=== PATIENT | female | born 1960 ===

== ENCOUNTER 2024-06-29 13:14 | Outpatient (AMB) | payer MEDICARE, OTHER, MEDICAID, SELFPAY ==
--- NOTE | 2024-06-29 13:16 | A.OFFVIS_ITS ---
Vital Signs 06/29/24 13:18 Height 5 ft Weight 155 lb 3.287 oz BMI 30.3 BP 118/74 Blood Pressure Location Lt brachial Position Sitting Pulse 86 Pulse Source Pulse Oximeter Pulse Oximetry (%) 98 Oxygen Delivery Method Room Air Intake Visit Reasons: T2DM Intake Note: NEW Patient presents today to establish treatment for Type 2 Diabetes Mellitus: Last Diabetic eye exam was on: About 2 years ago Last Podiatry exam was on: Patient does not see a Offset Label Rewinder Most recent HbA1c: 9.0%, 05/10/2024 Random Glucose- 194 mg/dL Workforce Management Consultant Required: Yes Workforce Management Consultant Language: Singaporean Workforce Management Consultant Services: Workforce Management Consultant Offered & Declined Accompanied by: Son Allergies No Known Allergies Allergy (Verified 06/29/24 13:21) HPI Comments Details: The patient is presenting for diabetes consultation Medical history: hypertension, migraines Current medications: Ozempic 2mg weekly (increased from 1mg weekly 1 month ago) Glipizide 10 ER Janumet 50-100mg daily once daily (decreased from BID due to dyspepsia) Farxiga 10mg daily Last A1c 04/2024 9.0% Complications-overdue eye exam. Last seen by Dr Venancio RAMOS CONSTITUTIONAL: Denies weight loss, fever and chills. HEENT: Denies changes in vision and hearing. RESPIRATORY: Denies SOB and cough. CV: Denies palpitations and CP GI: Denies abdominal pain, nausea, vomiting and diarrhea. : Denies dysuria and urinary frequency. MSK: Denies new myalgia and joint pain. SKIN: Denies rash and pruritus. NEUROLOGICAL: Denies headache PSYCHIATRIC: Denies recent changes in mood. PHYSICAL EXAM: GENERAL: Alert and oriented x 3. NAD EYES: EOMI. Anicteric. HENT: Moist mucous membranes. No scleral icterus. No cervical lymphadenopathy. LUNGS: Clear to auscultation bilaterally. CARDIOVASCULAR: Regular rate and rhythm. No murmur. No JVD. ABDOMEN: Soft, non-tender +bs EXTREMITIES: No edema. Non-tender. SKIN: No rashes or lesions. Warm. NEUROLOGIC: No focal neurological deficits. CN II-XII grossly intact PSYCHIATRIC: Cooperative. Appropriate mood and affect [facility] Medical History (Updated 06/29/24 @ 14:05 by Ofelia Guerra MD) Nonalcoholic steatohepatitis (CORTES) Hyperlipidemia, unspecified Zoster without complications Acute thyrotoxicosis Essential (primary) hypertension Type 2 diabetes mellitus with hyperglycemia Surgical History (Updated 06/29/24 @ 13:26 by GRISELDA Gregory) History of hemorrhoidectomy Family History (Updated 06/27/24 @ 10:07 by GRISELDA Mendez) Father No problems noted. Mother No problems noted. Physical Exam Vital Signs: Last Vital Signs Pulse 86 06/29/24 13:18 BP 118/74 06/29/24 13:18 Pulse Ox 98 06/29/24 13:18 Oxygen Delivery Method Room Air 06/29/24 13:18 BMI result Body Mass Index 30.3 Assessment & Plan Assessment & Plan (1) Type 2 diabetes mellitus with hyperglycemia: Code(s): E11.65 - Type 2 diabetes mellitus with hyperglycemia Category: Medical Qualifiers: Diabetes mellitus termite treater helper insulin use: without prison use Qualified Code(s): E11.65 - Type 2 diabetes mellitus with hyperglycemia Plan Uncontrolled GI side effects-unclear cause Stop janumet. Start metformin 1000 ER once daily Increase glipizide to 10mg twice daily Continue farxiga Return in 4-6 weeks Medications: New glipizide ER 10 mg PO BID 180 tabs 1RF metformin ER 1,000 mg PO DAILY 90 tabs 3RF ondansetron HCl 4 mg PO Q8H PRN 30 tabs 1RF nausea and vomiting FreeStyle Giovanni 2 [place] (flash glucose scanning reader) As directed 1 ea 0RF NS E11.65 - Type 2 diabetes mellitus with hyperglycemia Coding Level of Care Code New Pt Level 4 (60843) Diagnoses Type 2 diabetes mellitus with hyperglycemia, without long-term current use of insulin E11.65 Diabetes mellitus prison insulin use: without termite treater helper use
[2024-06-29 13:18] VITALS: BP 118/74; PULSE 86; O2SAT 98; BMI 30.3
[2024-06-29 13:31] LABS: Glucose, Whole Blood 194 mg/dL (60-115)
== END 2024-06-29 13:58 | disposition home or self-care (01) ==
PROVIDERS: PCP Physician Assistant Medical; Visit Provider Internal Medicine
DX: E11.65 Type 2 diabetes mellitus with hyperglycemia (principal)

== ENCOUNTER → 2024-06-29 13:14 | Outpatient (BNVA) | payer OTHER, MEDICAID, SELFPAY | PROVIDERS: PCP Physician Assistant Medical; Visit Provider Internal Medicine | DX: E11.65 Type 2 diabetes mellitus with hyperglycemia (principal); Z79.84 Long term (current) use of oral hypoglycemic drugs | CPT/HCPCS: 82947; 99202 ==

== ENCOUNTER 2024-08-03 13:12 | Outpatient (AMB) | payer MEDICARE, OTHER, MEDICAID, SELFPAY ==
--- NOTE | 2024-08-03 13:17 | A.OFFVIS_ITS ---
Vital Signs 08/03/24 13:19 Height 5 ft Weight 154 lb 5.177 oz BMI 30.1 BP 122/68 Blood Pressure Location Rt brachial Position Sitting Pulse 94 Pulse Source Pulse Oximeter Pulse Oximetry (%) 97 Oxygen Delivery Method Room Air Intake Visit Reasons: T2DM Intake Note: Patient presents today for a follow-up on Type 2 Diabetes Mellitus: Last Diabetic eye exam was on: DUE, as a coming up appt in November Last Podiatry exam was on: Patient does not see a Tobacco Checkout Clerk Most recent HbA1c: 8.5%, 08/03/2024 Random Glucose: 203 mg/dL Centrex Radio Operator Required: Yes Centrex Radio Operator Language: Citizen Of [place] Centrex Radio Operator Services: Centrex Radio Operator Offered & Declined Accompanied by: Son Allergies No Known Allergies Allergy (Verified 08/03/24 13:27) HPI Comments Details: The patient is presenting for diabetes consultation Medical history: hypertension, migraines Current medications: Ozempic 2mg weekly (increased from 1mg weekly 1 month ago) Glipizide 20 (increased from 10) ER Janumet 50-1000mg daily once daily (decreased from BID due to dyspepsia)-stopped Metformin 500mg bid Farxiga 10mg daily Last A1c 04/2024 9.0% A1C today 8.5% (med changes one month ago). Average over last 7 days 170. Lowest 66-fasting Complications-overdue eye exam. Last seen by Dr Venancio RAMOS CONSTITUTIONAL: Denies weight loss, fever and chills. HEENT: Denies changes in vision and hearing. RESPIRATORY: Denies SOB and cough. CV: Denies palpitations and CP GI: Denies abdominal pain, nausea, vomiting and diarrhea. : Denies dysuria and urinary frequency. MSK: Denies new myalgia and joint pain. SKIN: Denies rash and pruritus. NEUROLOGICAL: Denies headache PSYCHIATRIC: Denies recent changes in mood. PHYSICAL EXAM: GENERAL: Alert and oriented x 3. NAD EYES: EOMI. Anicteric. HENT: Moist mucous membranes. No scleral icterus. No cervical lymphadenopathy. LUNGS: Clear to auscultation bilaterally. CARDIOVASCULAR: Regular rate and rhythm. No murmur. No JVD. ABDOMEN: Soft, non-tender +bs EXTREMITIES: No edema. Non-tender. SKIN: No rashes or lesions. Warm. NEUROLOGIC: No focal neurological deficits. CN II-XII grossly intact PSYCHIATRIC: Cooperative. Appropriate mood and affect [facility] Medical History Nonalcoholic steatohepatitis (CORTES) Hyperlipidemia, unspecified Zoster without complications Acute thyrotoxicosis Essential (primary) hypertension Type 2 diabetes mellitus with hyperglycemia Surgical History History of hemorrhoidectomy Family History Father No problems noted. Mother No problems noted. Physical Exam Vital Signs: Last Vital Signs Pulse 94 08/03/24 13:19 BP 122/68 08/03/24 13:19 Pulse Ox 97 08/03/24 13:19 Oxygen Delivery Method Room Air 08/03/24 13:19 BMI result Body Mass Index 30.1 Results AMB Hemoglobin A1c AMB Hemoglobin A1c 8.5 % Last Edit by GRISELDA Mendez on 08/03/24 14:06 Results Reviewed Results Reviewed: Laboratory Last Values Glucose (Clinic) 203 mg/dL (60-115) H 08/03/24 13:24 Assessment & Plan Assessment & Plan (1) Type 2 diabetes mellitus with hyperglycemia: Code(s): E11.65 - Type 2 diabetes mellitus with hyperglycemia Category: Medical Qualifiers: Diabetes mellitus equipment operator intermodal yard insulin use: without snf use Qualified Code(s): E11.65 - Type 2 diabetes mellitus with hyperglycemia Plan Improved but still suboptimal glycemic control Will increase metformin to 2000mg daily If still not controlled would add actos Patient will return in 3 months or sooner as needed Orders: Orders AMB Hemoglobin A1c Today E11.65 - Type 2 diabetes mellitus with hyperglycemia Medications: New FreeStyle Giovanni 3 [place] (blood-glucose,single wire saw operator,cont) As directed 1 ea 0RF NS E11.65 - Type 2 diabetes mellitus with hyperglycemia FreeStyle Giovanni 3 Plus Sensor (blood-glucose sensor) every 15 days 6 ea 3RF NS E11.65 - Type 2 diabetes mellitus with hyperglycemia metformin ER (Glucophage XR) 2,000 mg (4 x 500 mg) PO DAILY 360 tabs 3RF Discontinued metformin ER Discontinued Reason: Doctor's Order 1,000 mg PO DAILY 90 tabs 3RF FreeStyle Giovanni 2 [place] (flash glucose scanning reader) Discontinued Reason: Doctor's Order As directed 1 ea 0RF NS E11.65 - Type 2 diabetes mellitus with hyperglycemia Coding Level of Care Code Est Pt Level 4 (93913) Diagnoses Type 2 diabetes mellitus with hyperglycemia, without long-term current use of insulin E11.65 Diabetes mellitus equipment operator intermodal yard insulin use: without equipment operator intermodal yard use
[2024-08-03 13:19] VITALS: BP 122/68; PULSE 94; O2SAT 97; BMI 30.1
[2024-08-03 13:28] LABS: Glucose, Whole Blood 203 mg/dL (60-115)
--- OUTSIDE RECORDS SUMMARY | 2024-08-03 15:05 | XMS_ITS | Clinical Summary ---
Author Organization [address] [facility] Address [address] [place] [address] Phone Care Team Providers Care Carton Forming Machine Tender Name Role Phone Linda Aguayo Primary Care Provider [phone] Social History Tobacco Use Types Packs/Day Years Used Date Smoking Tobacco: Never Assessed Comments Unknown Sex and Gender Information Value Date Recorded Sex Assigned at Not on file Legal Sex Female 1:25 PM EDT Gender Identity Not on file Sexual Orientation Not on file Plan of Treatment Upcoming Encounters Date Type Department Care Team ([facility] Contact Info) Description 09/14/2024 1:20 PM EDT Consult Gastroenterology - [place] [address] [address] Makayla Bowling PA [address] [address] Health Maintenance Due Date Last Done Comments Breast Cancer Screening 1960 DTaP,Tdap,and Td Vaccines (1 - Tdap) 1978 Cervical Cancer Screening: P ap Smear 02/18/1980 Pneumococcal Vaccine: 50+ Ye ars (1 of 1 - PCV) 2009 Zoster Vaccines (1 of 2) 2009 COVID-19 Vaccine (2023-2 5 season) 2023 Colorectal Cancer Screening: Colonoscopy 07/08/2024 Depression Screening 07/08/2024 Falls Risk Assessment 07/08/2024 Hepatitis C Screening 07/08/2024 Osteoporosis Screening (Bone Density Screening) 07/08/2024 Social Influencers of Health Screening 07/08/2024 Influenza Vaccine (Season Ended) 2024 RSV Immunization Adult Patie nts (1 - 1-dose 75+ series) 2034 HIB Vaccines Aged Out No longer eligi ble based on patient's age to complete this topic HPV Vaccines Aged Out No longer eligi ble based on patient's age to complete this topic Hepatitis A Vaccines Aged Out No long er eligible based on patient's age to complete this topic Hepatitis B Vaccines Aged Out No long er eligible based on patient's age to complete this topic IPV Vaccines Aged Out No longer eligi ble based on patient's age to complete this topic MMR Vaccines Aged Out No longer eligi ble based on patient's age to complete this topic Meningococcal ACWY Vaccine Aged Out N o longer eligible based on patient's age to complete this topic Meningococcal B Vaccine Aged Out No l onger eligible based on patient's age to complete this topic Pneumococcal Vaccine: Pediat rics (0 to 5 Years) and At-Risk Patients (6 to 64 Years) Aged Out No longer eligible b ased on patient's age to complete this topic RSV Immunization Patients Un hedy 20 months Aged Out No longer eligible b ased on patient's age to complete this topic Varicella Vaccines Aged Out No longer eligible based on patient's age to complete this topic Insurance [facility] [address] [place] [address] Care Teams Carton Forming Machine Tender Relationship Specialty Start Date End Date Linda Aguayo PA [address] [facility] 1 [place] [id number] PCP - General Physician Electronics Engineer 07/07/24
== END 2024-08-03 14:04 | disposition home or self-care (01) ==
LOC: HO.ENCR 13:13
PROVIDERS: PCP Physician Assistant Medical; Visit Provider Internal Medicine
DX: E11.65 Type 2 diabetes mellitus with hyperglycemia (principal)

== ENCOUNTER → 2024-08-03 13:12 | Outpatient (BNVA) | payer MEDICARE, OTHER, MEDICAID, SELFPAY | PROVIDERS: PCP Physician Assistant Medical; Visit Provider Internal Medicine | DX: E11.65 Type 2 diabetes mellitus with hyperglycemia (principal) | CPT/HCPCS: 82947; 83036; 99212 ==

== ENCOUNTER 2024-11-02 13:18 | Outpatient (AMB) | payer MEDICARE, OTHER, MEDICAID, SELFPAY ==
--- NOTE | 2024-11-02 13:20 | A.OFFVIS_ITS ---
Vital Signs 11/02/24 13:23 Height 5 ft Weight 154 lb 5.177 oz BMI 30.1 BP 138/88 Blood Pressure Location Rt brachial Position Sitting Pulse 76 Pulse Source Pulse Oximeter Pulse Oximetry (%) 96 Oxygen Delivery Method Room Air Intake Visit Reasons: DM Intake Note: Patient presents today for a follow-up on Type 2 Diabetes Mellitus: Last Diabetic eye exam was on: Has an appt 11/25/2024, [facility] Last Podiatry exam was on: Patient does not see a Guest Advisor Most recent HbA1c: 7.9%, 11/02/2024 Random Glucose: 123 mg/dL Tin Tie Machine Operator Automatic Required: Yes Tin Tie Machine Operator Automatic Language: Zambian Tin Tie Machine Operator Automatic Services: Tin Tie Machine Operator Automatic Offered & Declined Tin Tie Machine Operator Automatic Name: SON Accompanied by: Son Allergies No Known Allergies Allergy (Verified 08/03/24 13:27) HPI Comments Details: The patient is presenting for diabetes consultation Medical history: hypertension, migraines Current medications: Ozempic 2mg weekly Glipizide 20 Metformin 2000mg daily (increased from 1000) Farxiga 10mg daily Previously on Janumet 50-1000mg daily once daily (decreased from BID due to dyspepsia)-stopped A1C 7.9% 11/02/2024 from 8.5% from 9.0% CGM reviewed no lows GMI 7.4% Eye exam scheduled for november seeing GI-had swallow series, going for endoscopy ROS CONSTITUTIONAL: Denies weight loss, fever and chills. HEENT: Denies changes in vision and hearing. RESPIRATORY: Denies SOB and cough. CV: Denies palpitations and CP GI: Denies abdominal pain, nausea, vomiting and diarrhea. : Denies dysuria and urinary frequency. MSK: Denies new myalgia and joint pain. SKIN: Denies rash and pruritus. NEUROLOGICAL: Denies headache PSYCHIATRIC: Denies recent changes in mood. PHYSICAL EXAM: GENERAL: Alert and oriented x 3. NAD EYES: EOMI. Anicteric. HENT: Moist mucous membranes. No scleral icterus. No cervical lymphadenopathy. LUNGS: Clear to auscultation bilaterally. CARDIOVASCULAR: Regular rate and rhythm. No murmur. No JVD. ABDOMEN: Soft, non-tender +bs EXTREMITIES: No edema. Non-tender. SKIN: No rashes or lesions. Warm. NEUROLOGIC: No focal neurological deficits. CN II-XII grossly intact PSYCHIATRIC: Cooperative. Appropriate mood and affect [facility] Medical History Nonalcoholic steatohepatitis (CORTES) Hyperlipidemia, unspecified Zoster without complications Acute thyrotoxicosis Essential (primary) hypertension Type 2 diabetes mellitus with hyperglycemia Surgical History History of hemorrhoidectomy Family History Father No problems noted. Mother No problems noted. Physical Exam Vital Signs: Last Vital Signs Pulse 76 11/02/24 13:23 Pulse Ox 96 11/02/24 13:23 Oxygen Delivery Method Room Air 11/02/24 13:23 BMI result Body Mass Index 30.1 Results AMB Hemoglobin A1c AMB Hemoglobin A1c 7.9 % Last Edit by GRISELDA Mendez on 11/02/24 13:40 Assessment & Plan Assessment & Plan (1) Type 2 diabetes mellitus with hyperglycemia: Code(s): E11.65 - Type 2 diabetes mellitus with hyperglycemia Category: Medical Qualifiers: Diabetes mellitus intermediate insulin use: without dedicated intermodal truck driver use Qualified Code(s): E11.65 - Type 2 diabetes mellitus with hyperglycemia Plan type 2 diabetes-improving control, still suboptimal. add actos 30mg daily Continue other meds as presribed-refilled per patient request treat hypoglycemia by rules of 15s Follow up in 3 months or sooner as needed Orders: Orders AMB Hemoglobin A1c Today E11.65 - Type 2 diabetes mellitus with hyperglycemia Medications: New dapagliflozin propanediol (Farxiga) 10 mg PO DAILY 90 tabs 3RF pioglitazone 30 mg PO DAILY 90 tabs 3RF Changed From semaglutide (Ozempic) subcut E11.65 - Type 2 diabetes mellitus with hyperglycemia To Ozempic (semaglutide) 2 mg (0.75 mL) subcut QWEEK 9 mL 3RF NS E11.65 - Type 2 diabetes mellitus with hyperglycemia Refilled metformin ER (Glucophage XR) 2,000 mg (4 x 500 mg) PO DAILY 360 tabs 3RF glipizide ER 10 mg PO BID 180 tabs 1RF Coding Level of Care Code Est Pt Level 4 (53514) Diagnoses Type 2 diabetes mellitus with hyperglycemia, without long-term current use of insulin E11.65 Diabetes mellitus intermediate insulin use: without dedicated intermodal truck driver use
[2024-11-02 13:23] VITALS: BP 138/88; PULSE 76; O2SAT 96; BMI 30.1
[2024-11-02 13:36] LABS: Glucose, Whole Blood 123 mg/dL (60-115)
== END 2024-11-02 14:00 | disposition home or self-care (01) ==
LOC: HO.ENCR 13:19
PROVIDERS: PCP Physician Assistant Medical; Visit Provider Internal Medicine
DX: E11.65 Type 2 diabetes mellitus with hyperglycemia (principal)

== ENCOUNTER → 2024-11-02 13:18 | Outpatient (BNVA) | payer MEDICARE, OTHER, MEDICAID, SELFPAY | PROVIDERS: PCP Physician Assistant Medical; Visit Provider Internal Medicine | DX: E11.65 Type 2 diabetes mellitus with hyperglycemia (principal) | CPT/HCPCS: 82947; 83036; 99212 ==

== ENCOUNTER 2025-02-02 09:56 | Outpatient (AMB) | payer MEDICARE, OTHER, MEDICAID, SELFPAY ==
[2025-02-02 09:58] VITALS: BP 122/76; PULSE 86; O2SAT 98; BMI 30.9
--- NOTE | 2025-02-02 09:58 | A.OFFVIS_ITS ---
Vital Signs 02/02/25 09:58 Height 5 ft Weight 158 lb 2.273 oz BMI 30.9 BP 122/76 Blood Pressure Location Rt brachial Position Sitting Pulse 86 Pulse Source Pulse Oximeter Pulse Oximetry (%) 98 Oxygen Delivery Method Room Air Intake Visit Reasons: DM Intake Note: Patient presents today for a follow-up on Type 2 Diabetes Mellitus: Last Diabetic eye exam was on: 11/25/2024, [facility] Last Podiatry exam was on: Patient does not see a Flight Reservations Manager Most recent HbA1c: 7.6%, 02/02/2025 Random Glucose: 214 mg/dL Scallop Dredger Required: Yes Scallop Dredger Language: [place] Citizen Scallop Dredger Services: Scallop Dredger Offered & Declined Scallop Dredger Name: SON Accompanied by: Son Allergies No Known Allergies Allergy (Verified 08/03/24 13:27) HPI Comments Details: The patient is presenting for diabetes consultation Medical history: hypertension, migraines Current medications: Ozempic 2mg weekly Glipizide 20mg daily Metformin 2000mg daily (increased from 1000) Farxiga 10mg daily She did not start the pioglitazone Previously on Janumet 50-1000mg daily once daily (decreased from BID due to dyspepsia)-stopped. A1C 7.6% from 7.9% 11/02/2024 from 8.5% from 9.0% CGM reviewed no lows GMI 7.3%, TGT 68% high 32% Eye exam november 2024 seeing GI-had swallow series, going for endoscopy ROS CONSTITUTIONAL: Denies weight loss, fever and chills. HEENT: Denies changes in vision and hearing. RESPIRATORY: Denies SOB and cough. CV: Denies palpitations and CP GI: Denies abdominal pain, nausea, vomiting and diarrhea. : Denies dysuria and urinary frequency. MSK: Denies new myalgia and joint pain. SKIN: Denies rash and pruritus. NEUROLOGICAL: Denies headache PSYCHIATRIC: Denies recent changes in mood. PHYSICAL EXAM: GENERAL: Alert and oriented x 3. NAD EYES: EOMI. Anicteric. HENT: Moist mucous membranes. No scleral icterus. No cervical lymphadenopathy. LUNGS: Clear to auscultation bilaterally. CARDIOVASCULAR: Regular rate and rhythm. No murmur. No JVD. ABDOMEN: Soft, non-tender +bs EXTREMITIES: No edema. Non-tender. SKIN: No rashes or lesions. Warm. NEUROLOGIC: No focal neurological deficits. CN II-XII grossly intact PSYCHIATRIC: Cooperative. Appropriate mood and affect [facility] Medical History Nonalcoholic steatohepatitis (CORTES) Hyperlipidemia, unspecified Zoster without complications Acute thyrotoxicosis Essential (primary) hypertension Type 2 diabetes mellitus with hyperglycemia Surgical History History of hemorrhoidectomy Family History Father No problems noted. Mother No problems noted. Social History Alcohol intake: current Alcohol intake frequency: does not drink Patient Tobacco Use Status: Never used Tobacco Physical Exam Vital Signs: Last Vital Signs Pulse 86 02/02/25 09:58 BP 122/76 02/02/25 09:58 Pulse Ox 98 02/02/25 09:58 Oxygen Delivery Method Room Air 02/02/25 09:58 BMI result Body Mass Index 30.9 Results AMB Hemoglobin A1c AMB Hemoglobin A1c 7.6 % Last Edit by GRSIELDA Mendez on 02/02/25 10:21 Results Reviewed Results Reviewed: Laboratory Last Values Glucose (Clinic) 214 mg/dL (60-115) H 02/02/25 10:04 Assessment & Plan Assessment & Plan (1) Type 2 diabetes mellitus with hyperglycemia: Code(s): E11.65 - Type 2 diabetes mellitus with hyperglycemia Category: Medical Qualifiers: Diabetes mellitus meterman insulin use: without correction use Qualified Code(s): E11.65 - Type 2 diabetes mellitus with hyperglycemia Plan Type 2 diabetes Improved but still suboptimal control Transition ozempic 2mg to mounjaro 10mg daily. Continue meds at current max dosing Declines insulin, actos Constipation-linzess sent Treat hypoglycemia by rules of 15s Return in 3 months or sooner as needed Orders: Orders TSH reflex Free T4 Today E05.90 - Thyrotoxicosis, unspecified without thyrotoxic crisis or storm, E11.65 - Type 2 diabetes mellitus with hyperglycemia LDL Cholesterol Direct Today E05.90 - Thyrotoxicosis, unspecified without thyrotoxic crisis or storm, E11.65 - Type 2 diabetes mellitus with hyperglycemia AMB Hemoglobin A1c Today E11.65 - Type 2 diabetes mellitus with hyperglycemia Comprehensive Met. Panel Today E1165 - Type 2 diabetes mellitus with hyperglycemia Medications: New heacup-zvbmsnds-cscdcks (pork) 36,000-114,000- 180,000 unit (Creon) administer with meals and/or snacks 1 cap PO DAILY 90 caps 3RF linaclotide (Linzess) 290 mcg PO DAILY 90 caps 3RF Mounjaro (tirzepatide) transition from 2mg ozempic 10 mg (0.5 mL) subcut QWEEK 2 mL 3RF NS E11.65 - Type 2 diabetes mellitus with hyperglycemia On Hold Ozempic (semaglutide) Hold Comment: Dose Change 2 mg (0.75 mL) subcut QWEEK 9 mL 3RF NS E11.65 - Type 2 diabetes mellitus with hyperglycemia Coding Level of Care Code Est Pt Level 4 (39164) Diagnoses Type 2 diabetes mellitus with hyperglycemia, without long-term current use of insulin E11.65 Diabetes mellitus correction insulin use: without meterman use
[2025-02-02 10:08] LABS: Glucose, Whole Blood 214 mg/dL (60-115)
== END 2025-02-02 10:27 | disposition home or self-care (01) ==
LOC: HO.ENCR 09:57
PROVIDERS: PCP Physician Assistant Medical; Visit Provider Internal Medicine
DX: E11.65 Type 2 diabetes mellitus with hyperglycemia (principal)

== ENCOUNTER → 2025-02-02 09:56 | Outpatient (BNVA) | payer MEDICARE, OTHER, MEDICAID, SELFPAY | PROVIDERS: PCP Physician Assistant Medical; Visit Provider Internal Medicine | DX: E11.65 Type 2 diabetes mellitus with hyperglycemia (principal); E05.90 Thyrotoxicosis, unspecified without thyrotoxic crisis or storm; Z79.84 Long term (current) use of oral hypoglycemic drugs | CPT/HCPCS: 82947; 83036; 99212 ==

== ENCOUNTER 2025-02-02 10:57 | Outpatient (REF) | payer MEDICARE, OTHER, MEDICAID, SELFPAY ==
[2025-02-02 13:52] LABS: Alanine Aminotransferase 33 U/L (0-31); Albumin Level 4.2 g/dL (3.5-5.0); Alkaline Phosphatase 102 U/L (39-117); Anion Gap 14 (12-20); Aspartate Amino Transferase 25 U/L (5-31); Blood Urea Nitrogen 18 mg/dL (9-16); Calcium 9.0 mg/dL (8.4-10.2); Carbon Dioxide 22 mmol/L (22-29); Chloride 103 mmol/L (96-108); Estimated Glomerular Filt Rate > 60; Potassium 4.0 mmol/L (3.3-5.1); Sodium 135 mmol/L (135-145); Total Protein 6.8 g/dL (6.5-8.0)
--- OUTSIDE RECORDS SUMMARY | 2025-02-02 14:15 | XMS_ITS | Encounter Summary ---
Author Organization [facility] Address [address] [place] [address] Care Team Providers Care Beam Doffer Name Role Phone Linda Aguayo Primary Care Provider Encounter Details Date Type Department Care Team ([facility] st Contact Info) Description 12/25/2024 Results Follow-Up Gastroenterology - [place] 175 [facility] 175 [facility] [address] [place] [id number] Dequan Michelle MD 299 [facility] [address] [place] [address] Social History Tobacco Use Types Packs/Day Years Used Date Smoking Tobacco: Never Smokeless Tobacco: Never Alcohol Use Standard Drinks/Week Comments Not Currently 0 (1 standard drink = 0.6 oz pur e alcohol) Interpersonal Safety Answer Date Record ed Physical Abuse Unrecognized value 11/15/2024 Verbal Abuse Unrecognized value 11/15/2024 Comments No Sex and Gender Information Value Date Recorded Sex Assigned at Female 09/15/2024 9:21 AM EDT Legal Sex Female 1:25 PM EDT Gender Identity Female 09/15/2024 9:21 AM EDT Sexual Orientation Straight 09/15/2024 9: 21 AM EDT documented as of this encounter Progress Notes * Dequan Michelle MD - 12/25/2024 8:06 PM EST The biopsies of your stomach are within normal limits Please follow up in order to discuss these findings with the referring physician at [facility] gastroenterology clinic. I would like to personally thank you for allowing us to take care of you. Please don't hesitate to call us for any questions or concerns. Tramaine Caceres MD Board Certified Gastroenterology and Internal Medicine Transplant Hepatology [facility] documented in this encounter Plan of Treatment Not on file documented as of this encounter Goals Goal Patient Goal Type Associated Problems Recent Progress Patient-Stated? Author Autogenera vicente Goal Care Plan Autogenerated Problem No Karena Delgadillo documented as of this encounter Visit Diagnoses Not on filedocumented in this encounter Additional Health Concerns Active Problems Noted Date Diagnosed Date Autogenerated Problem 11/13/2024 documented as of this encounter Care Teams Beam Doffer Relationship Specialty Start Date End Date Linda Aguayo PA [address] [facility] [address] [place] [address] PCP - General Physician Event Security Officer 07/07/24 documented as of this encounter
--- OUTSIDE RECORDS SUMMARY | 2025-02-02 14:16 | XMS_ITS | Clinical Summary ---
Author Organization [facility] Address [address] [place] [address] Phone Care Team Providers Care Book Reviewer Name Role Phone Linda Aguayo Primary Care Provider Allergies No known active allergies Medications metFORMIN XR (GLUCOPHAGE-XR) 500 mg 24 hr tablet Take 4 tablets (2,000 mg total) by mouth 1 (one) time each day. 08/06/2024 Active losartan (COZAAR) 100 mg tablet Take 1 tablet (100 mg total) by mouth 1 (one) time each day. 08/31/2024 Active Ozempic 2 mg/dose (8 mg/3 mL) injection pen Inject 2 mg under the skin every 7 (seven) days. 09/12/2024 Active Farxiga 10 mg tablet Take 1 tablet (10 mg total) by mouth 1 (one) time each day. 09/05/2024 Active ondansetron (ZOFRAN) 4 mg tablet Take 1 tablet (4 mg total) by mouth every 8 (eight) hours if needed. for nausea and vomiting 07/23/2024 Active glipiZIDE (GLUCOTROL XL) 10 mg 24 hr tablet Take 1 tablet (10 mg total) by mouth 1 (one) time each day. 10/13/2024 Active esomeprazole (NexIUM) [address] capsule Take 1 capsule (40 mg total) by mouth 1 (one) time each day before breakfast. Do not open capsule. 60 each 3 12/27/2024 12/28/19 26 Active Encounters Date Type Department Care Team Description 12/27/2024 1:40 PM EST Office Visit Gastroenterology - [address] [facility] [address] [facility] [address] [place] [phone] Makayla Bowling PA Abnormal UGI series (Primary Dx); Gastroesophageal reflux disease, unspecified whether esophagitis present; Abdominal bloating 12/25/2024 Results Follow-Up Gastroenterology - [place] [address] [facility] [address] [facility] [address] [place] [phone] Dequan Michelle MD 12/05/2024 Results Follow-Up Gastroenterology [facility] [address] [facility] [address] [facility] [address] [place] [phone] Makayla Bowling PA 11/26/2024 Results Follow-Up Gastroenterology [facility] [address] [facility] [address] [facility] [address] [place] [phone] Makayla Bowling PA 11/25/2024 2:20 PM EDT - 11/25/2024 11:59 PM EDT Hospital Encounter [facility] CT Scan [address] [place] [phone] Abdominal bloating; Nausea; Gastroesophageal reflux disease, unspecified whether esophagitis present Discharge Disposition: Home or Self Care 11/15/2024 12:03 PM EDT Anesthesia Event [facility] Endoscopy [address] [place] [phone] Billy Davey MD Gomes, Sheldon B, MD 11/15/2024 10:55 AM EDT - 11/15/2024 11:59 PM EDT Hospital Encounter [facility] Endoscopy [address] [place] [phone] Dequan Michelle MD Steele, Matthew G, CRNA Abnormal UGI series Discharge Disposition: Home or Self Care 11/07/2024 Telephone Gastroenterology - [place] [address] [facility] [address] [facility] [address] [place] [phone] Makayla Bowling PA from Last 3 Months Surgical History Surgery Date Site/Laterality Comments ESOPHAGOGASTRODUODENOSCOPY Medical History Medical History Date Comments Migraines Hypertension GERD (gastroesophageal reflux disease) Diabetes mellitus ([facility] V24, [facility] V28) Social History Tobacco Use Types Packs/Day Years Used Date Smoking Tobacco: Never Smokeless Tobacco: Never Tobacco Cessation:Counseling Given: Not Answered Alcohol Use Standard Drinks/Week Comments Not Currently [...] Orientation Straight 09/15/2024 9: 21 AM EDT Last Filed Vital Signs Vital Sign Reading Time Taken Comments Blood Pressure 122/76 12/27/2024 1:24 PM EST Pulse 96 12/27/2024 1:24 PM EST Temperature 36.3 C (97.4 F) 11/15/2024 12:26 PM EDT Respiratory Rate 18 11/15/2024 12:46 PM EDT Oxygen Saturation 98% 12/27/2024 1:24 PM EST Inhaled Oxygen Concentration - - Weight 68.9 kg (152 lb) 12/27/2024 1:24 PM EST Height 152.4 cm (5') 12/27/2024 1:24 PM EST Body Mass Index 29.69 12/27/2024 1:24 PM EST Plan of Treatment Health Maintenance Due Date Last Done Comments Breast Cancer Screening 1960 Colorectal Cancer Screening: Colonoscopy 1960 DTaP,Tdap,and Td Vaccines (1 - Tdap) 1978 Cervical Cancer Screening: P ap Smear 02/18/1980 Pneumococcal Vaccine: 50+ Ye ars (1 of 1 - PCV) 2009 RSV Immunization Adult Patie nts (1 - Risk 50-74 years 1-dose series) 2009 Zoster Vaccines (1 of 2) 2009 Depression Screening 2024 Hepatitis C Screening 07/08/2024 Medicare Annual Wellness Visit 07/08/2024 Osteoporosis Screening (Bone Density Screening) 07/08/2024 Social Influencers of Health Screening 07/08/2024 COVID-19 Vaccine (1 - 2024-2 6 season) 2024 Influenza Vaccine (#1) 2024 Falls Risk Assessment 11/15/2025 11/15/2024 HIB Vaccines Aged Out No longer eligi [...] on patient's age to complete this topic Goals Goal Patient Goal Type Associated Problems Recent Progress Patient-Stated? Author Autogenera vicente Goal Care Plan Autogenerated Problem No ElieKarena marshall Juan Procedures Procedure Name Priority Date/Time Associated Diagnosis Comments CT ANGIO ABDOMEN WO AND/OR W CONTRAST Routine 11/25/2024 4:00 PM EDT Abdominal bloating Nausea Gastroesophageal reflux disease, unspecified whether esophagitis present RENAL FUNCTION PANEL Routine 11/17/2024 11:11 AM EDT Abdominal bloating EGD Routine 11/15/2024 12:25 PM EDT Abnormal UGI series TISSUE EXAM Routine 11/15/2024 12:22 PM EDT Abnormal UGI series from Last 3 Months Results * CT Angio Abdomen wo and/or w Contrast (11/25/2024 4:00 PM EDT) Anatomical Region Laterality Modality Body Computed Tomogra phy 12/05/2024 12:0 1 PM EDT Impressions 12/05/2024 12:12 PM EDT 1. No evidence of SMA syndrome. 2. Scattered mild atherosclerotic plaque. No hemodynamically significant stenosis or occlusion. -------- FINAL REPORT -------- Dictated By: Mitchell Elizabeth Dictated Date: 12/05/2024 12:01 ET Assigned Physician: Mitchell Elizabeth Reviewed and Electronically Signed By: Mitchell Elizabeth Signed Date: 12/05/2024 12:12 ET Workstation ID: [id number] Transcribed By: Self Edit Transcribed Date: 12/05/2024 12:01 ET Narrative 12/05/2024 12:12 PM EDT PROCEDURE: CT angiogram of the abdomen. TECHNIQUE: Contrast enhanced CT angiogram of the abdomen. Multiplanar reformats were created. IV contrast dose: 90 mL ISOVUE-370. HISTORY: Abnormal upper GI series suggesting mild mesenteric artery syndrome COMPARISON: Upper gastrointestinal study dated 10/26/2024. Dose length product: 720 mGy-cm. FINDINGS: Vasculature: Mild scattered atherosclerotic calcification of the aorta and common iliac arteries. No associated stenosis. No aneurysm. The celiac trunk and its branches are widely patent. The SMA is widely patent. Patent RAMONA. There is no significant compression of the duodenum by the SMA. Duplicated left renal artery. No renal artery stenosis. Lung bases: Mild dependent atelectasis. Patchy mosaic attenuation suggesting air trapping. Cardiac: Mild cardiomegaly. Liver: Suggestion of mild steatosis. No focal lesion on arterial phase imaging. Biliary: Normal gallbladder and biliary tree. Pancreas: Normal. Spleen: Normal. Adrenal glands: Normal. Kidneys: Normal. Normal appearance of the ureters. Retroperitoneum: No mass or adenopathy. Bowel/mesentery: Visualized portions are normal. Abdominal wall: Mild rectus diastases with a minimal fat-containing paraumbilical hernia. Bones: Mild degenerative changes of the spine and sacroiliac joints. Procedure Note Mitchell Elizabeth MD - 12/05/2024 PROCEDURE: CT angiogram of the abdomen. TECHNIQUE: Contrast enhanced CT angiogram of the abdomen. Multiplanarreformats were created. IV contrast dose: 90 mL ISOVUE-370. HISTORY: Abnormal upper GI series suggesting mild mesenteric arterysyndrome COMPARISON: Upper gastrointestinal study dated 10/26/2024. Dose length product: 720 mGy-cm. FINDINGS: Vasculature: Mild scattered atherosclerotic calcification of the aorta and common iliacarteries. No associated stenosis. No aneurysm. The celiac trunk and its branches are widely patent. The SMA is widelypatent. Patent RAMONA. There is no significant compression of the duodenum by the SMA. Duplicated left renal artery. No renal artery stenosis. Lung bases: Mild dependent atelectasis. Patchy mosaic attenuationsuggesting air trapping. Cardiac: Mild cardiomegaly. Liver: Suggestion of mild steatosis. No focal lesion on arterial phaseimaging. Biliary: Normal gallbladder and biliary tree. Pancreas: Normal. Spleen: Normal. Adrenal glands: Normal. Kidneys: Normal. Normal appearance of the ureters. Retroperitoneum: No mass or adenopathy. Bowel/mesentery: Visualized portions are normal. Abdominal wall: Mild rectus diastases with a minimal fat-containingparaumbilical hernia. Bones: Mild degenerative changes of the spine and sacroiliac joints. IMPRESSION: 1. No evidence of SMA syndrome. 2. Scattered mild atherosclerotic plaque. No hemodynamically significantstenosis or occlusion. -------- FINAL REPORT -------- Dictated By: Mitchell Elizabeth Dictated Date: 12/05/2024 12:01 ET Assigned Physician: Mitchell Elizabeth Reviewed and Electronically Signed By: Mitchell Elizabeth Signed Date: 12/05/2024 12:12 ET Workstation ID: [id number] Transcribed By: Self Edit Transcribed Date: 12/05/2024 12:01 ET Makayla WALLIS IMG CT PROCEDURES Final Resul t * (ABNORMAL) Renal function panel (11/17/2024 11:11 AM EDT) Sodium 135 133 - 145 mmol/L LAB CHEMISTRY METHOD 11/17/2024 1:[address] [facility] Potassium 4.3 3.5 - 5.5 mmol/L LAB CHEMISTRY METHOD 11/17/2024 1:[address] [facility] Chloride 102 96 - 110 mmol/L LAB CHEMISTRY METHOD 11/17/2024 1:51 PM [facility] CO2 25 21 - 32 mmol/L LAB CHEMISTRY METHOD 11/17/2024 1:51 PM [facility] Anion Gap 8 3 - 11 LAB CHEMISTRY METHOD 11/17/2024 1:51 PM [facility] Glucose 236(H) 70 - 100 mg/dL LAB CHEMISTRY METHOD 11/17/2024 1:51 PM [facility] BUN 16 5 - 25 mg/dL LAB CHEMISTRY METHOD 11/17/2024 1:51 PM [facility] Creatinine 0.71 0.50 - 1.10 mg/dL LAB CHEMISTRY METHOD 11/17/2024 1:51 PM [facility] eGFR 94 >=60 mL/min/1. 73m2 LAB CHEMISTRY METHOD 11/17/2024 1:51 PM [facility] Comment:Calculation based on the Chronic Kidney Disease Epidemiology Collaboration (CKD-EPI) equation refit without adjustment for race. BUN/Creatinine Ratio 22.5 LAB CHEMISTRY METHOD 11/17/2024 1:51 PM [facility] Albumin 3.6 3.2 - 5.0 g/dL LAB CHEMISTRY METHOD 11/17/2024 1:51 PM [facility] Calcium 10.1 8.5 - 10.5 mg/dL LAB CHEMISTRY METHOD 11/17/2024 1:51 PM [facility] Phosphorus 4.5 2.5 - 4.5 mg/dL LAB CHEMISTRY METHOD 11/17/2024 1:51 PM [facility] Blood Venous blood specimen / Unknown Venipuncture / Unknown 11/17/2024 11:11 AM EDT 11/17/2024 1:15 PM EDT Makayla WALLIS LAB BLOOD ORDERABLES Final Re sult [facility] H[facility] LAB [address] [place] [address], * EGD Anesthesia - MAC; [facility] ENDOSCOPY (11/15/2024 12:25 PM EDT) Anatomical Region Laterality Modality Endoscopy 11/15/2024 12:1 4 PM EDT Impressions 11/15/2024 12:27 PM EDT - Normal examined duodenum. - Gastritis. Biopsied. - Normal esophagus. Recommendation: - Discharge patient to home. - Await pathology results. - Return to GI clinic as previously scheduled. Narrative 11/15/2024 12:27 PM EDT [facility] GI Patient Name: Nakita Pérez Procedure Date: 11/15/2024 12:14 PM Date of : 1960 Age: 64 Gender: Female Note Status: Finalized Attending MD: Dequan Michelle MD, Procedure Date No Time: 11/15/2024 Procedure: Upper GI endoscopy Indications: New-onset upper abdominal symptoms in patient older than 50 years, Upper abdominal symptoms associated with anorexia (suggesting structural disease) Providers: Dequan Michelle MD Referring MD: Dequan Michelle MD Medicines: Monitored Anesthesia Care Complications: No immediate complications. Estimated blood loss: Minimal. Estimated Blood Loss: Estimated blood loss was minimal. Procedure: Pre-Anesthesia Assessment: - Prior to the procedure, a History and Physical was performed, and patient medications and allergies were reviewed. The patient is competent. The risks and benefits of the procedure and the sedation options and risks were discussed with the patient. All questions were answered and informed consent was obtained. Patient identification and proposed procedure were verified by the physician, the nurse, the ultrasonic welding machine operator and the aircraft systems technician in the pre-procedure area in the endoscopy suite. Mental Status Examination: alert and oriented. Airway Examination: normal oropharyngeal airway and neck mobility. Respiratory Examination: clear to auscultation. CV Examination: normal. Prophylactic Antibiotics: The patient does not require prophylactic antibiotics. Prior Anticoagulants: The patient has taken no anticoagulant or antiplatelet agents. ASA Grade Assessment: II - A patient with mild systemic disease. After reviewing the risks and benefits, the patient was deemed in satisfactory condition to undergo the procedure. The anesthesia plan was to use monitored anesthesia care (MAC). Immediately prior to administration of medications, the patient was re-assessed for adequacy to receive sedatives. The heart rate, respiratory rate, oxygen saturations, blood pressure, adequacy of pulmonary ventilation, and response to care were monitored throughout the procedure. The physical status of the patient was re-assessed after the procedure. After obtaining informed consent, the endoscope was passed under direct vision. Throughout the procedure, the patient's blood pressure, pulse, and oxygen saturations were monitored continuously. The Olympus Gastroscope was introduced through the mouth, and advanced to the third part of duodenum. The upper GI endoscopy was accomplished without difficulty. The patient tolerated the procedure well. Findings: The examined duodenum was normal. Segmental mild inflammation characterized by congestion (edema), erythema and granularity was found in the gastric body and in the gastric antrum. Biopsies were taken with a cold forceps for histology. Estimated blood loss was minimal. No other significant abnormalities were identified in a careful examination of the stomach. The esophagus was normal. Procedure Code(s): --- Professional --- 40487, Esophagogastroduodenoscopy, flexible, transoral; with biopsy, single or multiple Diagnosis Code(s): --- Professional --- K29.70, Gastritis, unspecified, without bleeding R19.8, Other specified symptoms and signs involving the digestive system and abdomen CPT copyright 2020 [employer]. All rights reserved. The codes documented in this report are preliminary and upon partition assembler review may be revised to meet current compliance requirements. Dequan Michelle MD 11/15/2024 12:26:56 PM This report has been signed electronically.Dequan Michelle MD Number of Addenda: 0 Note Initiated On: 11/15/2024 12:14 PM Scope In: Scope Out: Endoscopy Department at [facility] - [address] [place] [phone] Procedure Note Dequan Michelle MD - 11/15/2024 [facility] GI Patient Name: Nakita Pérez Procedure Date: 11/15/2024 12:14 PM Date of : 1960 Age: 64 Gender: Female Note Status: Finalized Attending MD: Dequan Michelle MD, Procedure Date No Time: 11/15/2024 Procedure: Upper GI endoscopy Indications: New-onset upper abdominal symptoms in patient older than 50 years, Upper abdominal symptoms associated with anorexia (suggesting structural disease) Providers: Dequan Michelle MD Referring MD: Dequan Michelle MD Medicines: Monitored Anesthesia Care Complications: No immediate complications. Estimated blood loss: Minimal. Estimated Blood Loss: Estimated blood loss was minimal. Procedure: Pre-Anesthesia Assessment: - Prior to the procedure, a History and Physicalwas performed, and patient medications and allergieswere reviewed. The patient is competent. The risks and benefits of the procedure and the sedation optionsand risks were discussed with the patient. Allquestions were answered and informed consent was obtained. Patient identification and proposed procedure were verified by the physician, the nurse, theanesthetist and the aircraft systems technician in the pre-procedure area in the endoscopy suite. Mental Status Examination: alertand oriented. Airway Examination: normal oropharyngeal airway and neck mobility. Respiratory Examination: clear to auscultation. CV Examination: normal. Prophylactic Antibiotics: The patient does notrequire prophylactic antibiotics. Prior Anticoagulants: The patient has taken no anticoagulant or antiplatelet agents. ASA Grade Assessment: II - A patient withmild systemic disease. After reviewing the risks and benefits, the patient was deemed in satisfactory condition to undergo the procedure. The anesthesia plan was to use monitored anesthesia care (MAC). Immediately prior to administration of medications, the patient was re-assessed for adequacy to receive sedatives. The heart rate, respiratory rate, oxygen saturations, blood pressure, adequacy of pulmonary ventilation, and response to care were monitored throughout the procedure. The physical status ofthe patient was re-assessed after the procedure. After obtaining informed consent, the endoscope was passed under direct vision. Throughout theprocedure, the patient's blood pressure, pulse, and oxygen saturations were monitored continuously. TheOlympus Gastroscope was introduced through the mouth, and advanced to the third part of duodenum. The upperGI endoscopy was accomplished without difficulty. The patient tolerated the procedure well. Findings: The examined duodenum was normal. Segmental mild inflammation characterized by congestion (edema), erythema and granularity wasfound in the gastric body and in the gastric antrum. Biopsies were taken with a cold forceps forhistology. Estimated blood loss was minimal. No other significant abnormalities were identifiedin a careful examination of the stomach. The esophagus was normal. Procedure Code(s): --- Professional --- 41206, Esophagogastroduodenoscopy, flexible, transoral; with biopsy, single or multiple Diagnosis Code(s): --- Professional --- K29.70, Gastritis, unspecified, without bleeding R19.8, Other specified symptoms and signs involving the digestive system and abdomen CPT copyright 2020 [employer]. All rights reserved. The codes documented in this report are preliminary and upon partition assembler reviewmay be revised to meet current compliance requirements. Dequan Michelle MD 11/15/2024 12:26:56 PM This report has been signed electronically.Dequan Michelle MD Number of Addenda: 0 Note Initiated On: 11/15/2024 12:14 PM Scope In: Scope Out: Endoscopy Department at [facility] - [address] [place] [phone] IMPRESSION: - Normal examined duodenum. - Gastritis. Biopsied. - Normal esophagus. Recommendation: - Discharge patient to home. - Await pathology results. - Return to GI clinic as previously scheduled. Dequan Michelle MD GI~PROCEDURE ORDERABLES Fin al Result * Tissue exam (11/15/2024 12:22 PM EDT) Final Diagnosis A. Stomach, gastric biopsy: - Gastric antral mucosa with no specific pathologic changes. 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 - No Helicobacter pylori organisms are morphologically identified. 11/16/2024 10:25 AM EDT [facility] at 1025 EDT Gross Description A. Stomach, gastric biopsy: Labeled stomach gastric . Received in formalin are three irregular bess mucosal tissue fragments, ranging from 0.1 cm to 0.3 cm in greatest dimension, which are wrapped in paper and submitted in toto in one cassette, three pieces, multiple levels on one slide. JAKE 11/16/2024 10:[address] [facility] Disclaimer Unless otherwise specified, all tissue is 10% NB formalin fixed and paraffin embedded. 11/16/2024 10:[address] [facility] Tissue Stomach structure / Unknown 11/15/2024 12:22 PM EDT 11/15/2024 2:29 PM EDT us Dequan Michelle MD LAB PATHOLOGY ORDERABLES Fi nal Result [facility] [address] [place] [address], [place] [phone] from Last 3 Months Additional Health Concerns Active Problems Noted Date Diagnosed Date Autogenerated Problem 11/13/2024 Insurance [facility] MEDICARE [place]ICAID - [place] Care Teams Book Reviewer Relationship Specialty Start Date End Date Linda Aguayo PA [address] [facility] [address] [place] [phone] PCP - General Physician Instructional Support Assistant 07/07/24
--- OUTSIDE RECORDS SUMMARY | 2025-02-02 14:16 | XMS_ITS | Encounter Summary ---
Author Organization [facility] Address [address] [place] [address] Care Team Providers Care Workday Senior Associate Name Role Phone Linda Aguayo Primary Care Provider [phone] Encounter Details Date Type Department Care Team ([facility] st Contact Info) Description 12/05/2024 Results Follow-Up Gastroenterology - [place] [address] [facility] [address] [facility] [address] [place] [phone] Makayla Bowling PA [address] [facility] [address] [place] [address] Social History Tobacco Use Types Packs/Day Years [...] as of this encounter Progress Notes * KADI Alves - 12/05/2024 12:21 PM EDT I will send msg. documented in this encounter Plan of Treatment [...] documented as of this encounter Care Teams Workday Senior Associate Relationship Specialty Start Date End Date Linda Aguayo PA [address] [facility] [address] [place] [address] PCP - General Physician Home Care Assistant 07/07/24 documented as of this encounter
== END 2025-02-02 10:58 | disposition home or self-care (01) ==
LOC: HO.10HDL 10:57
PROVIDERS: Visit Provider Internal Medicine
DX: E11.65 Type 2 diabetes mellitus with hyperglycemia (principal); E05.90 Thyrotoxicosis, unspecified without thyrotoxic crisis or storm
CPT/HCPCS: 36415; 80053; 83721; 84443